=== PATIENT | female | born 1970 | race Caucasian/White ===

== ENCOUNTER 2019-03-24 08:09 | Inpatient (IN) | payer MEDICAID ==
[~2019-03-24] VITALS: Ht 162.6 cm; Wt 70.5 kg
[~2019-03-24 08:09] MED LIST: METO25TA35 PO
--- NOTE | 2019-03-24 08:10 | NUR ---
PT WITH C/O N/V/D X 2 WKS, PT STATES SHE HAS BEEN UNABLE TO KEEP AND LIQUID DOWN. PT APPEARS ANXIOUS WITH HR 118. PT DENIES CP, SOB. ERPROVIDER IN TO EVAL PT, AWAITING ORDERS. PT TO BP, CONT PULSE OX
[2019-03-24] MEDS ORDERED: ONDANSETRON 2MG/ML, 2ML ONE (08:45)
[2019-03-24] MEDS ORDERED: MORPHINE SULFATE 4 MG/ML, 1ML ONE (08:45)
[2019-03-24] MEDS ORDERED: LORazepam 2 MG/ML, 1ML ONE (08:46)
--- NOTE | 2019-03-24 08:58 | NUR ---
PIV INITIATED, PT MEDICATED PER MAR
[2019-03-24] MEDS ORDERED: ONDANSETRON 2MG/ML, 2ML IVPush ONE (09:00)
[2019-03-24] MEDS ORDERED: SODIUM CHLORIDE 0.9% 1,000ML IVBOLUS ONE ×3 (09:00→12:30)
[2019-03-24] MEDS ORDERED: LORazepam 2 MG/ML, 1ML IVPush ONE (09:00)
[2019-03-24] MEDS ORDERED: MORPHINE SULFATE 4 MG/ML, 1ML IVPush PRN (09:00)
[2019-03-24 09:04] LABS: MEAN CORPUSCULAR HGB CONC 32.8 g/dL (32.4-35.8); MEAN CORPUSCULAR VOLUME 91.6 fL (80-100); MEAN PLATELET VOLUME 7.6 fL (7.4-10.4); PLATELET COUNT 228 x10^3/uL (130-400); RED BLOOD COUNT 5.43 x10^6/uL (3.82-5.3); RED CELL DISTRIBUTION WIDTH 13.6 % (9.6-15.2)
[2019-03-24 09:13] LABS: ALANINE AMINOTRANSFERASE 139 U/L (12-78); ALBUMIN 2.9 g/dL (3.4-5.0); ANION GAP 13 mmol/L (5-15); CALCIUM 7.5 mg/dL (8.5-10.1); CHLORIDE 91 mmol/L (98-107); CREATININE 1.72 mg/dL (0.55-1.02)
[2019-03-24 09:15] LABS: ALKALINE PHOSPHATASE 178 U/L (45-117); BILIRUBIN,TOTAL 0.3 mg/dL (0.2-1.0); TOTAL PROTEIN 6.9 g/dL (6.4-8.2)
[2019-03-24 09:23] LABS: MD YES
[2019-03-24 09:25] LABS: <PLATELET ESTIMATE> ADEQUATE; <PLT MORPHOLOGY> NORMAL PLT MORPH; <RBC MORPHOLOGY> NORMAL; BAND#(MANUAL) 1.21 x10^3/uL; BANDS%(MANUAL) 13 % (0-7); LYMPH#(MANUAL) 1.21 x10^3/uL (1-3.4); LYMPHS% (MANUAL) 13 % (22-44); MONOS#(MANUAL) 0.56 x10^3/uL (0.3-2.7); MONOS% (MANUAL) 6 % (2-9); SEG#(MANUAL) 6.32 x10^3/uL (1.8-6.8); SEGS% (MANUAL) 68 % (42-75)
[2019-03-24] MEDS ORDERED: SODIUM CHLORIDE FLUSH 10ML SYR IVF ONE (10:00)
--- NOTE | 2019-03-24 10:00 | NUR ---
US BEING COMPLETED AT BEDSIDE AT THIS TIME, DAYLIN MANN NOTED
--- NOTE | 2019-03-24 11:22 | NUR ---
PT AMBULATED TO BR TO COLLECT UA, UA COLLECTED AND SENT. PT UNABLE TO PROVIDE STOOL SAMPLE AT THIS TIME. PT DESATS TO 75 ON WHEN HOOKED BACK TO MONITORS, REPLACED O2 NC, PT SLOWLY REGAINS TO >92%. ERMD MADE AWARE
[2019-03-24 11:38] LABS: AMPHETAMINE SCREEN, URINE Positive (Negative); BARBITURATE SCREEN, URINE Negative (Negative); BENZODIAZEPINE SCREEN, URINE Negative (Negative); CANNABINOID SCREEN, URINE Positive (Negative); COCAINE SCREEN, URINE Negative (Negative); METHADONE SCREEN, URINE Negative (Negative); OPIATE SCREEN, URINE Positive (Negative)
--- NOTE | 2019-03-24 11:45 | NUR ---
PT TO CT
[2019-03-24] MEDS ORDERED: OMNIPAQUE 350 MG/ML, 100ML BOTTLE ONE (12:11)
--- NOTE | 2019-03-24 12:29 | NUR ---
TASK RN: PT RESTING ON GURNEY. RILEY. HOSPITALIST WAS BEDSIDE EARLIER. VSS.
[2019-03-24] MEDS ORDERED: ONDANSETRON 2MG/ML, 2ML IVPush PRN (12:30)
[2019-03-24] MEDS ORDERED: PROMETHAZINE 25 MG/ML, 1ML IM PRN (12:30)
--- NOTE | 2019-03-24 12:43 | NUR ---
TASK RN: REPORT TO JENNIFER KELLY. ALL QUESTIONS ANSWERED.
[2019-03-24 12:50] LABS: INTERNATIONAL NORMALIZED RATIO 1.03 (0.93-1.1); PROTHROMBIN TIME 10.9 Seconds (9.6-11.5)
[2019-03-24] MEDS ORDERED: MAGNESIUM SULFATE PMX 4GM/100M 100 ML IV ONE (13:30)
[2019-03-24] MEDS ORDERED: CIPROFLOXACIN/DEXTROSE 200 MG/100 ML PREMIX IVPB SCH (13:30)
[2019-03-24] MEDS: NICOTINE 21 MG/24 HR PATCH.TD24 TD SCH (14:27)
[2019-03-24] MEDS: CEFTRIAXONE PMX 1GM/50ML 50 ML IV SCH (14:27)
[2019-03-24] MEDS: SODIUM CHLORIDE 0.9% 1,000 ML IV SCH ×2 (14:28→18:33)
[2019-03-24] MEDS: METRONIDAZOLE PMX 500MG/100ML 100 ML IV SCH ×2 (15:07→20:55)
[2019-03-24] MEDS: HEPARIN 5,000 UNITS/ML, 1ML SQ SCH ×2 (15:08→20:55)
[2019-03-24 15:11] VITALS: BP 106/69
[2019-03-24 15:47] LABS: CLOSTRIDIUM DIFFICILE ANTIGEN POSITIVE; CLOSTRIDIUM DIFFICILE TOXIN NEGATIVE (Negative)
[2019-03-24] MEDS: morphine SULFATE 10 MG/ML, 1ML IVPush PRN ×2 (16:33→20:55)
[2019-03-24 16:34] LABS: MICROSCOPIC INDICATED; POTASSIUM,URINE RANDOM 39 mmol/L; SODIUM,URINE RANDOM 9 mmol/L
[2019-03-24 16:36] LABS: CULTURE INDICATED? YES
[2019-03-24 16:40] LABS: CHLORIDE,URINE RANDOM < 10 mmol/L
[2019-03-24 16:45] VITALS: BP 105/66
[2019-03-24] MEDS: VANCOMYCIN 50 MG/ML ORAL SUSP PO SCH (18:32)
[2019-03-24 20:32] VITALS: BP 104/52
[2019-03-25] MEDS: VANCOMYCIN 50 MG/ML ORAL SUSP PO SCH ×5 (00:04→23:40)
[2019-03-25 01:47] VITALS: BP 98/57
[2019-03-25] MEDS: SODIUM CHLORIDE 0.9% 1,000 ML IV SCH ×3 (01:51→13:23)
[2019-03-25] MEDS: METRONIDAZOLE PMX 500MG/100ML 100 ML IV SCH ×3 (05:28→21:10)
[2019-03-25] MEDS: HEPARIN 5,000 UNITS/ML, 1ML SQ SCH ×3 (05:28→21:10)
[2019-03-25] MEDS: morphine SULFATE 10 MG/ML, 1ML IVPush PRN (05:28)
[2019-03-25 06:08] LABS: MEAN CORPUSCULAR HEMOGLOBIN 29.8 pg (27.0-34.8); MEAN CORPUSCULAR HGB CONC 32.8 g/dL (32.4-35.8); MEAN CORPUSCULAR VOLUME 90.6 fL (80-100); MEAN PLATELET VOLUME 7.9 fL (7.4-10.4); PLATELET COUNT 176 x10^3/uL (130-400); RED BLOOD COUNT 4.43 x10^6/uL (3.82-5.3); RED CELL DISTRIBUTION WIDTH 13.7 % (9.6-15.2)
[2019-03-25 06:11] LABS: CALCIUM 7.1 mg/dL (8.5-10.1); CHLORIDE 99 mmol/L (98-107)
[2019-03-25 06:23] LABS: ALANINE AMINOTRANSFERASE 76 U/L (12-78); ALBUMIN 2.1 g/dL (3.4-5.0); ALKALINE PHOSPHATASE 129 U/L (45-117); ANION GAP 7 mmol/L (5-15); BILIRUBIN,TOTAL 0.6 mg/dL (0.2-1.0); CREATININE 0.94 mg/dL (0.55-1.02); TOTAL PROTEIN 5.4 g/dL (6.4-8.2)
[2019-03-25 07:09] LABS: MD YES
[2019-03-25 07:12] LABS: LYMPH#(MANUAL) 1.33 x10^3/uL (1-3.4); LYMPHS% (MANUAL) 12 % (22-44); MONOS#(MANUAL) 0.33 x10^3/uL (0.3-2.7); MONOS% (MANUAL) 3 % (2-9)
[2019-03-25 07:13] LABS: <PLATELET ESTIMATE> ADEQUATE; <PLT MORPHOLOGY> NORMAL PLT MORPH; <RBC MORPHOLOGY> NORMAL; BANDS%(MANUAL) 18 % (0-7); SEG#(MANUAL) 7.44 x10^3/uL (1.8-6.8); SEGS% (MANUAL) 67 % (42-75)
[2019-03-25] MEDS: PANTOPRAZOLE 40 MG IV IVPush SCH (08:26)
[2019-03-25 09:55] VITALS: BP 104/68
[2019-03-25] MEDS ORDERED: ALBUTEROL/IPRATROPIUM 2.5MG/0.5MG, 3 ML HHN SCH (10:30)
[2019-03-25] MEDS: NICOTINE 21 MG/24 HR PATCH.TD24 TD SCH (13:23)
[2019-03-25] MEDS: CEFTRIAXONE PMX 1GM/50ML 50 ML IV SCH (13:23)
[2019-03-25 13:29] VITALS: BP 97/61
[2019-03-25] MEDS ORDERED: ALBUTEROL/IPRATROPIUM 2.5MG/0.5MG, 3 ML HHN PRN (15:00)
[2019-03-25] MEDS: LORazepam 1MG TABLET PO PRN (21:10)
[2019-03-25 21:15] VITALS: BP 99/60
[2019-03-26 02:59] VITALS: BP 97/66
[2019-03-26] MEDS: morphine SULFATE 10 MG/ML, 1ML IVPush PRN ×2 (03:18→12:12)
[2019-03-26] MEDS: VANCOMYCIN 50 MG/ML ORAL SUSP PO SCH ×4 (05:04→22:14)
[2019-03-26] MEDS: HEPARIN 5,000 UNITS/ML, 1ML SQ SCH ×3 (05:04→21:00)
[2019-03-26] MEDS: METRONIDAZOLE PMX 500MG/100ML 100 ML IV SCH ×3 (05:05→21:00)
[2019-03-26] MEDS: LORazepam 1MG TABLET PO PRN ×2 (05:05→17:05)
[2019-03-26] MEDS: SODIUM CHLORIDE 0.9% 1,000 ML IV SCH ×2 (05:21→17:06)
[2019-03-26 05:57] LABS: CHLORIDE 103 mmol/L (98-107)
[2019-03-26 06:08] LABS: ALANINE AMINOTRANSFERASE 64 U/L (12-78); ALBUMIN 1.9 g/dL (3.4-5.0); ALKALINE PHOSPHATASE 148 U/L (45-117); ANION GAP 6 mmol/L (5-15); BILIRUBIN,TOTAL 0.9 mg/dL (0.2-1.0); CALCIUM 7.5 mg/dL (8.5-10.1); CREATININE 0.68 mg/dL (0.55-1.02); TOTAL PROTEIN 5.5 g/dL (6.4-8.2)
[2019-03-26 06:24] LABS: BASOPHILS % (AUTO) 0 % (0-1); EOSINOPHILS % (AUTO) 0 % (1-7); LYMPHOCYTES # (AUTO) 0.99 x10^3/uL (1-3.4); LYMPHOCYTES % (AUTO) 11 % (22-44); MD NO; MEAN CORPUSCULAR HEMOGLOBIN 29.9 pg (27.0-34.8); MEAN CORPUSCULAR HGB CONC 32.8 g/dL (32.4-35.8); MEAN PLATELET VOLUME 8.2 fL (7.4-10.4); MONOCYTES # (AUTO) 0.57 x10^3/uL (0.2-0.8); MONOCYTES % (AUTO) 6 % (2-9); NEUTROPHILS # (AUTO) 7.26 x10^3/uL (1.8-6.8); NEUTROPHILS % (AUTO) 82 % (42-75); PLATELET COUNT 174 x10^3/uL (130-400); RED BLOOD COUNT 4.06 x10^6/uL (3.82-5.3)
[2019-03-26] MEDS: PANTOPRAZOLE 40 MG IV IVPush SCH (07:45)
[2019-03-26 07:50] VITALS: BP 106/62
[2019-03-26] MEDS: CEFTRIAXONE PMX 1GM/50ML 50 ML IV SCH (12:12)
[2019-03-26] MEDS: NICOTINE 21 MG/24 HR PATCH.TD24 TD SCH (13:49)
[2019-03-26] MEDS: ALBUTEROL/IPRATROPIUM 2.5MG/0.5MG, 3 ML HHN SCH ×2 (14:06→21:00)
[2019-03-26 15:04] VITALS: BP 98/64
[2019-03-26 19:24] VITALS: BP 116/68
[2019-03-26] MEDS ORDERED: TRAZODONE 50MG TABLET PO SCH (21:30)
[2019-03-26] MEDS: ACETAMINOPHEN 325 MG TABLET PO PRN (22:13)
[2019-03-27 01:43] VITALS: BP 109/67
[2019-03-27] MEDS: ACETAMINOPHEN 325 MG TABLET PO PRN (02:59)
[2019-03-27] MEDS: ALBUTEROL/IPRATROPIUM 2.5MG/0.5MG, 3 ML HHN SCH ×4 (03:00→21:00)
[2019-03-27] MEDS: METRONIDAZOLE PMX 500MG/100ML 100 ML IV SCH ×3 (05:36→21:21)
[2019-03-27] MEDS: HEPARIN 5,000 UNITS/ML, 1ML SQ SCH ×3 (05:36→21:21)
[2019-03-27] MEDS: VANCOMYCIN 50 MG/ML ORAL SUSP PO SCH ×3 (05:36→20:02)
[2019-03-27 07:38] VITALS: BP 117/67
[2019-03-27] MEDS: PANTOPRAZOLE 40 MG IV IVPush SCH (08:05)
[2019-03-27 12:44] VITALS: BP 113/76
[2019-03-27] MEDS: NICOTINE 21 MG/24 HR PATCH.TD24 TD SCH (13:44)
[2019-03-27] MEDS: CEFTRIAXONE PMX 1GM/50ML 50 ML IV SCH (14:51)
[2019-03-27 20:02] VITALS: BP 115/78
[2019-03-27] MEDS ORDERED: TEMAZEPAM 15 MG CAPSULE PO SCH (21:00)
[2019-03-28] MEDS: VANCOMYCIN 50 MG/ML ORAL SUSP PO SCH ×3 (02:16→16:30)
[2019-03-28] MEDS: ACETAMINOPHEN 325 MG TABLET PO PRN (02:20)
[2019-03-28] MEDS: LORazepam 1MG TABLET PO PRN (02:20)
[2019-03-28 02:21] VITALS: BP 124/84
[2019-03-28] MEDS: ALBUTEROL/IPRATROPIUM 2.5MG/0.5MG, 3 ML HHN SCH ×2 (03:05→08:25)
[2019-03-28] MEDS: METRONIDAZOLE PMX 500MG/100ML 100 ML IV SCH ×2 (05:28→15:40)
[2019-03-28] MEDS: HEPARIN 5,000 UNITS/ML, 1ML SQ SCH ×2 (05:30→13:30)
[2019-03-28 06:51] LABS: MEAN CORPUSCULAR HGB CONC 33.1 g/dL (32.4-35.8); MEAN CORPUSCULAR VOLUME 90.4 fL (80-100); PLATELET COUNT 267 x10^3/uL (130-400); RED BLOOD COUNT 4.21 x10^6/uL (3.82-5.3); RED CELL DISTRIBUTION WIDTH 13.9 % (9.6-15.2)
[2019-03-28 06:57] LABS: ANION GAP 6 mmol/L (5-15); CALCIUM 8.2 mg/dL (8.5-10.1); CHLORIDE 106 mmol/L (98-107)
[2019-03-28 06:58] LABS: ALANINE AMINOTRANSFERASE 47 U/L (12-78); ALBUMIN 1.9 g/dL (3.4-5.0)
[2019-03-28 07:02] LABS: ALKALINE PHOSPHATASE 252 U/L (45-117); BILIRUBIN,TOTAL 0.7 mg/dL (0.2-1.0); TOTAL PROTEIN 5.7 g/dL (6.4-8.2)
[2019-03-28 07:12] LABS: MD YES
[2019-03-28] MEDS ORDERED: POTASSIUM CHLORIDE 20 MEQ TAB.ER.PRT PO ONE (07:30)
[2019-03-28 07:36] LABS: <RBC MORPHOLOGY> NORMAL; BAND#(MANUAL) 0.09 x10^3/uL; BANDS%(MANUAL) 1 % (0-7); LYMPH#(MANUAL) 1.98 x10^3/uL (1-3.4); LYMPHS% (MANUAL) 23 % (22-44); MONOS#(MANUAL) 0.95 x10^3/uL (0.3-2.7); MONOS% (MANUAL) 11 % (2-9); MYELOCYTES# (MANUAL) 0.09 x10^3/uL (0-0); MYELOCYTES% (MANUAL) 1 % (0-0); SEGS% (MANUAL) 64 % (42-75)
[2019-03-28 07:37] LABS: <PLATELET ESTIMATE> ADEQUATE; <PLT MORPHOLOGY> NORMAL PLT MORPH
[2019-03-28 09:16] VITALS: BP 120/82
[2019-03-28] MEDS: PANTOPRAZOLE 40 MG IV IVPush SCH (10:06)
[2019-03-28] MEDS ORDERED: AMOX1TAB64 PO ×2 (11:43)
[2019-03-28] MEDS ORDERED: VANC1VIA3 PO ×2 (11:43)
[2019-03-28] MEDS: NICOTINE 21 MG/24 HR PATCH.TD24 TD SCH (12:30)
[2019-03-28 13:49] VITALS: BP 137/92
[2019-03-28] MEDS ORDERED: METR500T PO ×2 (15:04)
[2019-03-28] MEDS: CEFTRIAXONE PMX 1GM/50ML 50 ML IV SCH (16:30)
== END 2019-03-28 17:45 | disposition left against medical advice (07) | DRG 248 ==
LOC: ED 11:46 → MERGE 11:51 → SUATTDRO 11:51 → EDIP 11:51 → ED 12:10 → 3N 13:04
PROVIDERS: ADMIT Hospitalist; ATTEND Hospitalist
DX: A04.72 Enterocolitis due to Clostridium difficile, not specified as recurrent (principal); J96.01 Acute respiratory failure with hypoxia; I21.19 ST elevation (STEMI) myocardial infarction involving other coronary artery of inferior wall; N17.0 Acute kidney failure with tubular necrosis; J18.9 Pneumonia, unspecified organism; E86.0 Dehydration; E87.1 Hypo-osmolality and hyponatremia; B17.9 Acute viral hepatitis, unspecified; N39.0 Urinary tract infection, site not specified; Z53.29 Procedure and treatment not carried out because of patient's decision for other reasons; B96.20 Unspecified Escherichia coli [E. coli] as the cause of diseases classified elsewhere; B96.89 Other specified bacterial agents as the cause of diseases classified elsewhere; E86.1 Hypovolemia; Z82.49 Family history of ischemic heart disease and other diseases of the circulatory system; Z83.3 Family history of diabetes mellitus; Z72.0 Tobacco use; K62.89 Other specified diseases of anus and rectum
CPT/HCPCS: 36415; 87046; 87427; 89055; 96374; 96375; 99285; J3370; J7620; 71045; 72193; 76700; 80047; 80053; 80074; 80307; 81001; 82436; 82550; 82570; 83036; 83690; 83735; 84100; 84133; 84300; 84439; 84443; 85025; 85610; 87077; 87086; 87186; 87324; 87493; 93005; 94640; G0378; J0696; J1644; J2405; Q9967; C9113; J2060; J2270; J3475; J7030

== ENCOUNTER 2019-03-29 10:16 | Inpatient (IN) | payer MEDICAID ==
[~2019-03-29] VITALS: Ht 162.6 cm; Wt 63.1 kg
[~2019-03-29 10:16] MED LIST changes: +AMOX1TAB64 PO; +METR500T PO; +VANC1VIA3 PO
[2019-03-29] MEDS ORDERED: HEPARIN 1,000 UNITS/ML, 10ML ONE (10:21)
[2019-03-29] MEDS ORDERED: LIDOCAINE 1%, 20ML ONE (10:21)
[2019-03-29] MEDS ORDERED: VERAPAMIL 2.5 MG/ML, 2ML ONE (10:21)
[2019-03-29] MEDS ORDERED: NITROGLYCERIN 5 MG/ML, 10ML ONE ×2 (10:21→12:32)
[2019-03-29] MEDS ORDERED: FENTANYL PF 250 MCG/5ML ONE (10:21)
[2019-03-29] MEDS ORDERED: BIVALIRUDIN 250 MG ONE ×2 (10:21→11:58)
[2019-03-29] MEDS ORDERED: MIDAZOLAM 1 MG/ML, 5ML ONE (10:23)
[2019-03-29 10:36] LABS: MEAN CORPUSCULAR HEMOGLOBIN 29.4 pg (27.0-34.8); MEAN CORPUSCULAR HGB CONC 32.8 g/dL (32.4-35.8); MEAN CORPUSCULAR VOLUME 89.6 fL (80-100); MEAN PLATELET VOLUME 8.1 fL (7.4-10.4); PLATELET COUNT 315 x10^3/uL (130-400); RED BLOOD COUNT 4.43 x10^6/uL (3.82-5.3); RED CELL DISTRIBUTION WIDTH 13.9 % (9.6-15.2)
[2019-03-29 10:46] LABS: INTERNATIONAL NORMALIZED RATIO 1.24 (0.93-1.1); PROTHROMBIN TIME 13.2 Seconds (9.6-11.5)
[2019-03-29] MEDS ORDERED: BIVALIRUDIN 250 MG in SODIUM CHLORIDE 0.9% 50 ML IV SCH (10:47)
--- NOTE | 2019-03-29 10:47 | NUR ---
PT TO ED AT [facility] THIS AM WITH 8/10 CP SINCE 0300 - AWOKE PT FROM SLEEP, EKG THERE SHOWED 1-[address] ELEVATION IN LATERAL LEADS. SENT VIA CARE FLIGHT, CODE CARDIAC CALLED @1011, ARRIVAL TIME 1014. PT HAS BILAT 20G IN AC, ON HEPARIN GTT @800UNITS/HOUR AND NITRO GTT @20MCG/H, FENTANYL 100MCG AND ZOFRAN 4MG GIVEN. HX RECENT HOSPITALIZATION FOR PNA. EKG COMPLETED, AND AT BEDSIDE. PT TO PSYCHOLOGY ASSOCIATE @0793
[2019-03-29] MEDS ORDERED: PRASUGREL 10 MG TABLET ONE (10:49)
[2019-03-29 10:50] LABS: ALANINE AMINOTRANSFERASE 72 U/L (12-78); ALBUMIN 2.1 g/dL (3.4-5.0); ANION GAP 7 mmol/L (5-15); BASOPHILS # (AUTO) 0.03 x10^3/uL (0-0.1); BASOPHILS % (AUTO) 0 % (0-1); CALCIUM 7.7 mg/dL (8.5-10.1); CHLORIDE 104 mmol/L (98-107); CREATININE 0.66 mg/dL (0.55-1.02); EOSINOPHILS # (AUTO) 0.05 x10^3/uL (0-0.4); EOSINOPHILS % (AUTO) 0 % (1-7); LYMPHOCYTES # (AUTO) 1.57 x10^3/uL (1-3.4); LYMPHOCYTES % (AUTO) 13 % (22-44); MD SCAN; MONOCYTES # (AUTO) 2.08 x10^3/uL (0.2-0.8); MONOCYTES % (AUTO) 17 % (2-9); NEUTROPHILS # (AUTO) 8.64 x10^3/uL (1.8-6.8); NEUTROPHILS % (AUTO) 70 % (42-75)
[2019-03-29 10:55] LABS: ALKALINE PHOSPHATASE 303 U/L (45-117); BILIRUBIN,TOTAL 0.8 mg/dL (0.2-1.0); TOTAL PROTEIN 5.9 g/dL (6.4-8.2)
[2019-03-29] MEDS ORDERED: ONDANSETRON 2MG/ML, 2ML IVPush PRN (11:00)
[2019-03-29] MEDS ORDERED: ACETAMINOPHEN 325 MG TABLET PO PRN ×2 (11:00→17:30)
[2019-03-29] MEDS: ASPIRIN 81 MG TABLET EC PO SCH (13:17)
[2019-03-29] MEDS: SODIUM CHLORIDE 0.9% 1,000 ML IV SCH ×2 (13:18→19:57)
[2019-03-29] MEDS ORDERED: morphine SULFATE 10 MG/ML, 1ML IVPush PRN ×2 (14:30→17:30)
[2019-03-29] MEDS ORDERED: PROMETHAZINE 25 MG/ML, 1ML IM PRN (17:30)
[2019-03-29] MEDS ORDERED: BISACODYL 10 MG SUPP PR PRN (17:30)
[2019-03-29] MEDS ORDERED: DOCUSATE 100 MG CAPSULE PO PRN (17:30)
[2019-03-29] MEDS ORDERED: POLYETHYLENE GLYCOL 17 GM PACKET PO PRN (17:30)
[2019-03-29 17:38] LABS: AMPHETAMINE SCREEN, URINE Negative (Negative); BARBITURATE SCREEN, URINE Negative (Negative); BENZODIAZEPINE SCREEN, URINE Positive (Negative); CANNABINOID SCREEN, URINE Positive (Negative); COCAINE SCREEN, URINE Negative (Negative); METHADONE SCREEN, URINE Negative (Negative); OPIATE SCREEN, URINE Negative (Negative)
[2019-03-29] MEDS ORDERED: metroNIDAZOLE 50 MG/ML ORAL.SUSP PO SCH (21:00)
[2019-03-29] MEDS ORDERED: ATORVASTATIN 80 MG TABLET PO SCH (21:00)
[2019-03-29] MEDS: METOPROLOL TARTRATE 25 MG TABLET PO SCH (21:16)
[2019-03-29] MEDS: AMOXICILLIN/CLAV 875-125MG TABLET PO SCH (21:29)
[2019-03-29] MEDS: metroNIDAZOLE 500 MG TABLET PO SCH (21:29)
[2019-03-30 04:00] VITALS: BP 121/76
[2019-03-30 04:36] LABS: MEAN CORPUSCULAR HEMOGLOBIN 29.3 pg (27.0-34.8); MEAN CORPUSCULAR HGB CONC 32.5 g/dL (32.4-35.8); MEAN CORPUSCULAR VOLUME 90.3 fL (80-100); MEAN PLATELET VOLUME 8.1 fL (7.4-10.4); PLATELET COUNT 414 x10^3/uL (130-400); RED BLOOD COUNT 4.33 x10^6/uL (3.82-5.3); RED CELL DISTRIBUTION WIDTH 13.9 % (9.6-15.2)
[2019-03-30 04:43] LABS: ALANINE AMINOTRANSFERASE 121 U/L (12-78); ANION GAP 8 mmol/L (5-15); CALCIUM 7.7 mg/dL (8.5-10.1); CHLORIDE 105 mmol/L (98-107); CHOLESTEROL, TOTAL 93 mg/dL (140-239); CREATININE 0.55 mg/dL (0.55-1.02)
[2019-03-30 04:51] LABS: ALKALINE PHOSPHATASE 283 U/L (45-117); BILIRUBIN,TOTAL 0.6 mg/dL (0.2-1.0); CHOL/HDL RATIO 4.4; HDL CHOL % 23 % (28-40); HDL CHOLESTEROL (DIRECT) 21 mg/dL (40-60); LDL CHOLESTEROL,CALCULATED 37 mg/dL (54-169); LDL/HDL RATIO 1.8 (0.5-3.0); TOTAL PROTEIN 5.7 g/dL (6.4-8.2); TRIGLYCERIDES 174 mg/dL (50-200); VLDL CHOLESTEROL 35 mg/dL (0-25)
[2019-03-30 05:42] LABS: BASOPHILS # (AUTO) 0.02 x10^3/uL (0-0.1); BASOPHILS % (AUTO) 0 % (0-1); EOSINOPHILS # (AUTO) 0.01 x10^3/uL (0-0.4); EOSINOPHILS % (AUTO) 0 % (1-7); LYMPHOCYTES # (AUTO) 1.32 x10^3/uL (1-3.4); LYMPHOCYTES % (AUTO) 9 % (22-44); MD SCAN; MONOCYTES # (AUTO) 2.36 x10^3/uL (0.2-0.8); MONOCYTES % (AUTO) 16 % (2-9); NEUTROPHILS % (AUTO) 75 % (42-75)
[2019-03-30] MEDS: PRASUGREL 10 MG TABLET PO SCH (09:33)
[2019-03-30] MEDS: ASPIRIN 81 MG TABLET EC PO SCH (09:34)
[2019-03-30] MEDS: METOPROLOL TARTRATE 25 MG TABLET PO SCH ×2 (09:34→21:32)
[2019-03-30] MEDS: AMOXICILLIN/CLAV 875-125MG TABLET PO SCH ×2 (09:34→21:32)
[2019-03-30] MEDS: metroNIDAZOLE 500 MG TABLET PO SCH ×3 (09:34→21:32)
[2019-03-30] MEDS ORDERED: MAGNESIUM SULFATE PMX 2GM/50ML 50 ML IV ONE (15:00)
[2019-03-30 16:13] VITALS: BP 108/70
[2019-03-30 20:07] VITALS: BP 108/77
[2019-03-30 21:27] VITALS: BP 105/73
[2019-03-31 03:07] VITALS: BP 103/71
[2019-03-31 05:50] LABS: MEAN CORPUSCULAR HEMOGLOBIN 29.9 pg (27.0-34.8); MEAN CORPUSCULAR HGB CONC 33.3 g/dL (32.4-35.8); MEAN CORPUSCULAR VOLUME 89.7 fL (80-100); MEAN PLATELET VOLUME 8.6 fL (7.4-10.4); PLATELET COUNT 497 x10^3/uL (130-400); RED BLOOD COUNT 4.14 x10^6/uL (3.82-5.3); RED CELL DISTRIBUTION WIDTH 14.1 % (9.6-15.2)
[2019-03-31 05:55] LABS: ALBUMIN 1.9 g/dL (3.4-5.0); ANION GAP 6 mmol/L (5-15); CHLORIDE 104 mmol/L (98-107)
[2019-03-31 05:59] LABS: ALANINE AMINOTRANSFERASE 86 U/L (12-78); ALKALINE PHOSPHATASE 204 U/L (45-117); BILIRUBIN,TOTAL 0.7 mg/dL (0.2-1.0); CREATININE 0.56 mg/dL (0.55-1.02)
[2019-03-31 06:01] LABS: BASOPHILS # (AUTO) 0.04 x10^3/uL (0-0.1); BASOPHILS % (AUTO) 0 % (0-1); EOSINOPHILS # (AUTO) 0.14 x10^3/uL (0-0.4); EOSINOPHILS % (AUTO) 1 % (1-7); LYMPHOCYTES # (AUTO) 1.78 x10^3/uL (1-3.4); LYMPHOCYTES % (AUTO) 13 % (22-44); MD SCAN; MONOCYTES % (AUTO) 15 % (2-9); NEUTROPHILS # (AUTO) 10.22 x10^3/uL (1.8-6.8); NEUTROPHILS % (AUTO) 72 % (42-75)
[2019-03-31 07:35] VITALS: BP 106/72
[2019-03-31] MEDS: METOPROLOL TARTRATE 25 MG TABLET PO SCH ×2 (09:00→20:14)
[2019-03-31] MEDS ORDERED: LOSARTAN 25MG TABLET PO SCH (09:00)
[2019-03-31] MEDS: LOSARTAN 25MG TABLET PO SCH (09:00)
[2019-03-31] MEDS: metroNIDAZOLE 500 MG TABLET PO SCH (09:13)
[2019-03-31] MEDS: ASPIRIN 81 MG TABLET EC PO SCH (09:13)
[2019-03-31] MEDS: AMOXICILLIN/CLAV 875-125MG TABLET PO SCH ×2 (09:13→20:14)
[2019-03-31] MEDS: MAGNESIUM OXIDE 400 MG TABLET PO SCH (09:14)
[2019-03-31] MEDS: PRASUGREL 10 MG TABLET PO SCH (09:14)
[2019-03-31 09:18] VITALS: BP 96/66
[2019-03-31 12:37] VITALS: BP 95/68
[2019-03-31] MEDS: VANCOMYCIN 50 MG/ML ORAL SUSP PO SCH ×2 (17:20→23:45)
[2019-03-31 20:09] VITALS: BP 98/70
[2019-04-01 01:25] VITALS: BP 96/66
[2019-04-01] MEDS: VANCOMYCIN 50 MG/ML ORAL SUSP PO SCH ×4 (05:22→23:53)
[2019-04-01 05:37] LABS: MEAN CORPUSCULAR HEMOGLOBIN 29.9 pg (27.0-34.8); MEAN CORPUSCULAR HGB CONC 33.2 g/dL (32.4-35.8); MEAN CORPUSCULAR VOLUME 90.3 fL (80-100); PLATELET COUNT 693 x10^3/uL (130-400); RED BLOOD COUNT 4.05 x10^6/uL (3.82-5.3); RED CELL DISTRIBUTION WIDTH 14.1 % (9.6-15.2)
[2019-04-01 05:44] LABS: CHLORIDE 107 mmol/L (98-107)
[2019-04-01 05:49] LABS: ALANINE AMINOTRANSFERASE 63 U/L (12-78); ALBUMIN 2.1 g/dL (3.4-5.0); ALKALINE PHOSPHATASE 165 U/L (45-117); ANION GAP 7 mmol/L (5-15); BILIRUBIN,TOTAL 0.4 mg/dL (0.2-1.0); CALCIUM 8.4 mg/dL (8.5-10.1); CREATININE 0.58 mg/dL (0.55-1.02); TOTAL PROTEIN 6.3 g/dL (6.4-8.2)
[2019-04-01 06:08] LABS: BASOPHILS # (AUTO) 0.08 x10^3/uL (0-0.1); BASOPHILS % (AUTO) 1 % (0-1); EOSINOPHILS # (AUTO) 0.02 x10^3/uL (0-0.4); EOSINOPHILS % (AUTO) 0 % (1-7); LYMPHOCYTES # (AUTO) 1.95 x10^3/uL (1-3.4); LYMPHOCYTES % (AUTO) 15 % (22-44); MD SCAN; MONOCYTES # (AUTO) 1.32 x10^3/uL (0.2-0.8); MONOCYTES % (AUTO) 10 % (2-9); NEUTROPHILS # (AUTO) 9.42 x10^3/uL (1.8-6.8); NEUTROPHILS % (AUTO) 74 % (42-75)
[2019-04-01 06:55] VITALS: BP 106/74
[2019-04-01] MEDS: PRASUGREL 10 MG TABLET PO SCH (08:58)
[2019-04-01] MEDS: MAGNESIUM OXIDE 400 MG TABLET PO SCH (08:58)
[2019-04-01] MEDS: AMOXICILLIN/CLAV 875-125MG TABLET PO SCH (08:58)
[2019-04-01] MEDS: ASPIRIN 81 MG TABLET EC PO SCH (08:58)
[2019-04-01] MEDS: METOPROLOL TARTRATE 25 MG TABLET PO SCH ×2 (09:00→20:01)
[2019-04-01] MEDS: LOSARTAN 25MG TABLET PO SCH (09:00)
[2019-04-01 09:03] VITALS: BP 98/62
[2019-04-01 13:47] VITALS: BP 104/68
[2019-04-01] MEDS: LACTOBACILLUS CHEW TABLET PO SCH ×3 (16:00→20:01)
[2019-04-01 19:38] VITALS: BP 96/65
[2019-04-02 01:02] VITALS: BP 99/55
[2019-04-02 05:38] LABS: ALBUMIN 2.4 g/dL (3.4-5.0); ANION GAP 4 mmol/L (5-15); CALCIUM 8.9 mg/dL (8.5-10.1); CHLORIDE 105 mmol/L (98-107)
[2019-04-02] MEDS: VANCOMYCIN 50 MG/ML ORAL SUSP PO SCH ×4 (05:38→23:37)
[2019-04-02 05:41] LABS: ALANINE AMINOTRANSFERASE 52 U/L (12-78); ALKALINE PHOSPHATASE 167 U/L (45-117); BILIRUBIN,TOTAL 0.5 mg/dL (0.2-1.0); TOTAL PROTEIN 7.6 g/dL (6.4-8.2)
[2019-04-02 05:51] LABS: BASOPHILS # (AUTO) 0.04 x10^3/uL (0-0.1); BASOPHILS % (AUTO) 0 % (0-1); EOSINOPHILS # (AUTO) 0.07 x10^3/uL (0-0.4); EOSINOPHILS % (AUTO) 1 % (1-7); LYMPHOCYTES # (AUTO) 2.18 x10^3/uL (1-3.4); LYMPHOCYTES % (AUTO) 19 % (22-44); MD NO; MEAN CORPUSCULAR HEMOGLOBIN 29.6 pg (27.0-34.8); MEAN CORPUSCULAR HGB CONC 32.6 g/dL (32.4-35.8); MEAN CORPUSCULAR VOLUME 90.7 fL (80-100); MEAN PLATELET VOLUME 8.2 fL (7.4-10.4); MONOCYTES # (AUTO) 1.24 x10^3/uL (0.2-0.8); MONOCYTES % (AUTO) 11 % (2-9); NEUTROPHILS # (AUTO) 8.15 x10^3/uL (1.8-6.8); NEUTROPHILS % (AUTO) 70 % (42-75); PLATELET COUNT 855 x10^3/uL (130-400); RED BLOOD COUNT 4.46 x10^6/uL (3.82-5.3); RED CELL DISTRIBUTION WIDTH 14.2 % (9.6-15.2)
[2019-04-02 07:01] VITALS: BP 97/64
[2019-04-02] MEDS: ASPIRIN 81 MG TABLET EC PO SCH (11:35)
[2019-04-02] MEDS: MAGNESIUM OXIDE 400 MG TABLET PO SCH (11:35)
[2019-04-02] MEDS: LACTOBACILLUS CHEW TABLET PO SCH ×3 (11:35→20:22)
[2019-04-02] MEDS: METOPROLOL TARTRATE 25 MG TABLET PO SCH ×2 (11:35→20:22)
[2019-04-02] MEDS: PRASUGREL 10 MG TABLET PO SCH (11:36)
[2019-04-02 12:29] VITALS: BP 99/64
[2019-04-02 20:14] VITALS: BP 92/62
[2019-04-03 01:01] VITALS: BP 95/61
[2019-04-03 05:36] LABS: ANION GAP 9 mmol/L (5-15); CALCIUM 8.5 mg/dL (8.5-10.1); CHLORIDE 102 mmol/L (98-107)
[2019-04-03 05:37] LABS: CREATININE 0.76 mg/dL (0.55-1.02)
[2019-04-03] MEDS: VANCOMYCIN 50 MG/ML ORAL SUSP PO SCH (05:43)
[2019-04-03 06:14] LABS: BASOPHILS # (AUTO) 0.04 x10^3/uL (0-0.1); BASOPHILS % (AUTO) 0 % (0-1); EOSINOPHILS % (AUTO) 0 % (1-7); LYMPHOCYTES # (AUTO) 2.37 x10^3/uL (1-3.4); LYMPHOCYTES % (AUTO) 21 % (22-44); MD NO; MEAN CORPUSCULAR HEMOGLOBIN 30.3 pg (27.0-34.8); MEAN CORPUSCULAR HGB CONC 33.5 g/dL (32.4-35.8); MEAN CORPUSCULAR VOLUME 90.4 fL (80-100); MEAN PLATELET VOLUME 7.8 fL (7.4-10.4); MONOCYTES # (AUTO) 1.24 x10^3/uL (0.2-0.8); MONOCYTES % (AUTO) 11 % (2-9); NEUTROPHILS # (AUTO) 7.44 x10^3/uL (1.8-6.8); NEUTROPHILS % (AUTO) 67 % (42-75); PLATELET COUNT 967 x10^3/uL (130-400); RED CELL DISTRIBUTION WIDTH 13.9 % (9.6-15.2)
[2019-04-03 06:46] VITALS: BP 103/68
[2019-04-03] MEDS ORDERED: ASPI81TA45 PO (09:09)
[2019-04-03] MEDS ORDERED: VANC1VIA3 PO (09:09)
[2019-04-03] MEDS ORDERED: PRAS10TA4 PO (09:09)
[2019-04-03] MEDS ORDERED: METO25TA35 PO (09:09)
[2019-04-03] MEDS: LACTOBACILLUS CHEW TABLET PO SCH (09:18)
[2019-04-03] MEDS: MAGNESIUM OXIDE 400 MG TABLET PO SCH (09:18)
[2019-04-03] MEDS: PRASUGREL 10 MG TABLET PO SCH (09:18)
[2019-04-03] MEDS: ASPIRIN 81 MG TABLET EC PO SCH (09:18)
[2019-04-03] MEDS: METOPROLOL TARTRATE 25 MG TABLET PO SCH (09:19)
== END 2019-04-03 10:24 | disposition home or self-care (01) | DRG 246 ==
LOC: EDBD 10:16 → EDSEX 10:16 → ED 10:34 → EDIP 10:47 → CCU 12:21 → 5SO 03-30 15:56
PROVIDERS: ADMIT Internal Medicine; ATTEND Internal Medicine
PROC: 027035Z Dilation of Coronary Artery, One Artery with Two Drug-eluting Intraluminal Devices, Percutaneous Approach (ICD-10-PCS; principal; 2019-03-29)
PROC: 02C03ZZ Extirpation of Matter from Coronary Artery, One Artery, Percutaneous Approach (ICD-10-PCS; 2019-03-29)
PROC: 4A023N7 Measurement of Cardiac Sampling and Pressure, Left Heart, Percutaneous Approach (ICD-10-PCS; 2019-03-29)
PROC: B211YZZ Fluoroscopy of Multiple Coronary Arteries using Other Contrast (ICD-10-PCS; 2019-03-29)
PROC: B215YZZ Fluoroscopy of Left Heart using Other Contrast (ICD-10-PCS; 2019-03-29)
PROC: B240ZZ3 Ultrasonography of Single Coronary Artery, Intravascular (ICD-10-PCS; 2019-03-29)
DX: T82.528A Displacement of other cardiac and vascular devices and implants, initial encounter (principal); I21.19 ST elevation (STEMI) myocardial infarction involving other coronary artery of inferior wall; I47.1 Supraventricular tachycardia; Y84.0 Cardiac catheterization as the cause of abnormal reaction of the patient, or of later complication, without mention of misadventure at the time of the procedure; Y92.89 Other specified places as the place of occurrence of the external cause; E83.51 Hypocalcemia; E83.42 Hypomagnesemia; E88.09 Other disorders of plasma-protein metabolism, not elsewhere classified; R73.9 Hyperglycemia, unspecified; F17.210 Nicotine dependence, cigarettes, uncomplicated; I25.2 Old myocardial infarction; Z82.49 Family history of ischemic heart disease and other diseases of the circulatory system; Z83.3 Family history of diabetes mellitus; Z91.19 Patient's noncompliance with other medical treatment and regimen; Z79.899 Other long term (current) drug therapy
CPT/HCPCS: 36415; 92973; 92978; 93458; 99285; J3370; J3490; 71045; 71250; 80048; 80053; 80061; 80307; 83735; 84100; 84443; 84484; 85025; 85610; 87081; 93005; 93306; 93356; 99156; 99157; C1753; C1760; C1769; C1894; G0378; J0583; J1644; J2250; J3010; C1725; C1757; C1874; C1887; J2270; J3475; J7030; Q9967